=== PATIENT | male | born 1955 | race African-American/Black ===

== ENCOUNTER → 2016-07-29 | Outpatient (CLI) | payer MEDICARE ==
[~2016-07-29] MED LIST: HALO5AMP3 PO; LISI2.5T PO; METF500T4 PO; QUET25TA5 PO
== END | disposition home or self-care (01) ==
LOC: CFH 11:35
PROVIDERS: ATTEND Physician Assistant Surgical
DX: N40.1 Benign prostatic hyperplasia with lower urinary tract symptoms (principal); N35.9 Urethral stricture, unspecified; R31.0 Gross hematuria; R30.9 Painful micturition, unspecified
CPT/HCPCS: 76870